=== PATIENT | male | born 1960 | race Caucasian/White ===

== ENCOUNTER 2021-01-09 11:43 | Emergency (ER) | payer OTHER ==
[~2021-01-09] VITALS: Ht 172.7 cm; Wt 102.1 kg
[~2021-01-09 11:43] MED LIST: ADVAIR 250-501 EACH INH; ADVAIR HFA115 MCG/21 INH; AZELASTINE137 MCG/0. NASAL; FISH OIL 11600 MG/5 PO; FLOMAX0.4 MG PO; MULTIVITAMINS PO; NORCO 5-325 TA1 EACH PO; SINGULAIR 10 MG10 M1 PO; ZYRTEC10 M5 PO
[2021-01-09 12:08] LABS: URINE BILIRUBIN NEGATIVE (Negative); URINE BLOOD 1+ (Negative); URINE CLARITY CLEAR; URINE COLOR YELLOW; URINE GLUCOSE-RANDOM* NEGATIVE (Negative); URINE KETONES NEGATIVE (Negative); URINE LEUKOCYTES-REFLEX NEGATIVE (Negative); URINE NITRITE-REFLEX NEGATIVE (Negative); URINE PROTEIN (DIPSTICK) NEGATIVE (Negative); URINE SPECIFIC GRAVITY 1.015 (1.005-1.035); URINE UROBILINOGEN 0.2 E.U./dl (0.2-1.0)
[2021-01-09 12:31] LABS: CASTS None Seen /LPF (None Seen); MUCUS 4-6 Moderate strn/LPF (None Seen); SQUAMOUS 0-3 Few /LPF (0-3)
[2021-01-09 12:33] LABS: BACTERIA-REFLEX 1-9 Few /HPF (None Seen); URINE RBC 1-2 Rare /HPF (NONE SEEN); URINE WBC-REFLEX 0-5 Rare /HPF (0-5)
[2021-01-09 12:34] LABS: CRYSTALS None Seen /LPF (None Seen)
[2021-01-09 12:38] LABS: ABSOLUTE NEUTROPHILS 11.9 thou/uL (1.4-8.2); EOSINOPHILS 3.2 % (0.0-3.0); HEMATOCRIT 39.7 % (42.0-52.0); HEMOGLOBIN 13.5 gm/dL (14.0-18.0); LYMPHOCYTES 14.2 % (24.0-44.0); MCH 30.6 pg (26.0-34.0); MCV 89.9 fL (80.0-100.0); MONOCYTES 11.8 % (1.0-8.0); PLATELET COUNT 300 thou/uL (150-400); POLYS 69.8 % (36.0-66.0); RBC 4.42 mil/uL (4.50-6.00); RDW 12.4 % (10.5-14.5); WBC 17.1 thou/uL (4.0-11.0)
[2021-01-09 12:47] LABS: CALCIUM 11.9 mg/dL (8.5-10.1); CREATININE 1.7 mg/dL (0.7-1.3); POTASSIUM 3.1 mmol/L (3.5-5.1)
--- NOTE | 2021-01-09 12:48 | EKG ---
[address] [place] [address] ELECTROCARDIOGRAM REPORT Name: MANUEL SAAVEDRA III Room #: REG STEFANO Geronimo#: [id number] Admission: 01/09/21 Attend Phys: Discharge: Date of : 58 Report #: [id number] [facility] ED Test Date: 2021-01-09 Test Time: 12:23:27 Pat Name: MANUEL SAAVEDRA Department: Room: Gender: M Platform Engineer: aquilino : 1960 Requested By: Indio Rehman Order Number: [id number] MD: Nabil Ceballos Measurements Intervals [place] Rate: 65 P: 17 MA: 152 QRS: 63 QRSD: 108 T: 13 QT: 406 QTc: 423 Interpretive Statements Sinus rhythm Baseline wander in lead(s) V2,V3 Compared to ECG 01/13/2016 09:36:27 No significant changes Electronically Signed On 01-09-2021 12:47:53 HEALTH SERVICES ADMINISTRATOR by Nabil Ceballos [email or web address] <ELECTRONICALLY SIGNED> By: Nabil Ceballos MD 01/09/21 1247 1223 1223 MD HORACE Reza
[2021-01-09 12:54] LABS: ALBUMIN 3.7 g/dL (3.4-5.0); TOTAL PROTEIN 7.5 g/dL (6.4-8.2)
[2021-01-09] MEDS ORDERED: NORCO7.5 PO (13:49)
[2021-01-09] MEDS ORDERED: CEPHALEXIN500 MG PO (13:49)
[2021-01-09] MEDS ORDERED: ZOFRAN ODT4 MG PO (13:49)
[2021-01-09 14:38] VITALS: BP 116/73
== END 2021-01-09 14:38 | disposition home or self-care (01) ==
LOC: ER 11:43
PROVIDERS: Emergency Medicine
DX: N20.1 Calculus of ureter (principal); R10.31 Right lower quadrant pain; F17.210 Nicotine dependence, cigarettes, uncomplicated; K21.9 Gastro-esophageal reflux disease without esophagitis; J45.909 Unspecified asthma, uncomplicated; Z79.899 Other long term (current) drug therapy; Z98.890 Other specified postprocedural states; Z90.89 Acquired absence of other organs